=== PATIENT | male | born 1955 | race Two or more races ===

== ENCOUNTER 2017-02-25 05:59 | Day surgery (SDC) | payer BC ==
--- NOTE | 2017-02-24 20:20 | PREOPHP ---
DATE OF ADMISSION: 02/25/2017 HISTORY OF PRESENT ILLNESS: This 61-year-old gentleman who is going to be admitted for diagnostic a rthroscopy of right shoulder, examination under general anesthesia, SLAP repair and Bankart repair a nd rotator cuff repair. This gentleman has been experiencing right shoulder pain for quite a while. Conservative treatment resulted in ____. The patient has requested surgical intervention. PAST MEDICAL HISTORY: Diabetes and hypertension. SOCIAL HISTORY: Nonsmoker, nondrinker. SURGICAL HISTORY: Negative. FAMILY HISTORY: Negative. ALLERGIES: NO HISTORY OF ALLERGY TO MEDICATION. MEDICATIONS: 1. Metformin. 2. Lipid medication. 3. Hypertension medication. 4. Medication for depression. 5. The patient also received Sulindac. 6. ____ [place] 5/325 for postoperative pain. 7. Bactrim-DS 1 b.i.d. for postoperative antibiotic. PHYSICAL EXAMINATION: SKIN: Within normal limits. EARS, NOSE, THROAT: PERRLA. HEAD AND NECK: Normocephalic. Trachea midline. Bilateral symmetrical carotid pulses. No mass, no bruit, no lymphadenopathy. CARDIOVASCULAR: Normal sinus rhythm. S1, S2 normal. No murmur. No JVD. No peripheral edema. LUNGS: Clear. ABDOMEN: Slightly protuberant. No organomegaly. No mass. Bowel sounds present. GENITOURINARY: Rectal not done, not pertinent to this admission. MUSCULOSKELETAL: Cervical spine appears 97% range of motion with mild trapezial tenderness on the r ight. The right shoulder shows minimal muscle atrophy. Range of motion is 0 to 150 degrees of flex ion and 0 to 30 degrees of abduction. ____. Left shoulder was normal. Elbow, forearm, wrist and hand are symmetrical and normal. Neurological examination is intact. Spi ne clear. Both lower extremities symmetrical and normal including neurovascular examination. MRI of the right shoulder indicates full-thickness retracted tear of supraspinatus anteriorly, measu ring 1.8 cm in AP dimension and 1.8 mm gap retracted medially and there is mild partial tear of the subscapularis, labral degeneration superiorly, joint effusion. Moderate AC arthropathy. DIAGNOSES: 1. Right shoulder chronic pain, right shoulder rotator cuff tear, right shoulder SLAP, Bankart lesi on, right shoulder arthrofibrosis. Treatment plan, alternatives, risks and benefits discussed. The patient understands possible compli cations from surgery such as infection, bleeding, nerve damage, vascular damage, deep venous thrombo sis, pulmonary embolism, hypersensitivity, and even . The patient understands ideal result may not be obtained depending on actual finding and known or un known factors. Formal H and P is supposed to be done by the PCP. Dictated By: ELYSSA MARSHALL/TE Conf#: [id number] DID#: [id number]
[~2017-02-25] VITALS: Ht 170.2 cm; Wt 89.1 kg
[~2017-02-25 05:59] MED LIST: CEFAZOLIN 2 GM/50 ML (PMX) 50 ML IVPB ONE; FLUO10CA17; METF500T4; METO10TA96; [UNRECOGNIZED DRUG - OTHER]
[2017-02-25 06:05] VITALS: BP 153/95; PULSE 81; RESP 18; Ht 170.2 cm; Wt 89.1 kg
[2017-02-25] MEDS ORDERED: EPINEPHrine 1 MG/ML 30 ML INJ ONE (07:03)
[2017-02-25] MEDS ORDERED: morphine SULFATE/PF (10 MG/10 ML) INJ ONE (07:03)
[2017-02-25] MEDS ORDERED: PANT40SU PO (07:06)
[2017-02-25] MEDS ORDERED: SITA100T8 PO (07:06)
[2017-02-25] MEDS ORDERED: GLIM4TAB PO (07:06)
[2017-02-25] MEDS ORDERED: ENAL20TA PO (07:06)
[2017-02-25] MEDS ORDERED: METF-731 PO (07:06)
[2017-02-25] MEDS ORDERED: ASPI-664 PO (07:06)
[2017-02-25] MEDS ORDERED: PRAV40TA76 PO (07:06)
[2017-02-25] MEDS ORDERED: FLUO40CA10 PO (07:07)
[2017-02-25] MEDS ORDERED: FENTAnyl 50 MCG/ML VIAL ONE (07:21)
[2017-02-25] MEDS ORDERED: ROPIVACAINE 0.5 % 30 ML VIAL ONE (07:39)
[2017-02-25] MEDS ORDERED: MIDAZOLAM 1 MG/ML 2 ML INJ ONE (07:41)
[2017-02-25] MEDS ORDERED: GLYCOPYRROLATE 0.4 MG INJ ONE (08:44)
[2017-02-25] MEDS ORDERED: NEOSTIGMINE 3 MG/3 ML SYRINGE ONE (08:44)
[2017-02-25] MEDS ORDERED: SUCCINYLCHOLINE CHLORIDE 100 MG/5 ML SYG IV ONE (08:44)
[2017-02-25] MEDS ORDERED: ROCURONIUM 50 MG INJ ONE (08:44)
[2017-02-25] MEDS ORDERED: PROPOFOL 40 ML ONE (08:44)
[2017-02-25] MEDS ORDERED: CEFAZOLIN 1 GM INJ ONE (08:44)
[2017-02-25] MEDS ORDERED: LIDOCAINE 2% (SDV) 5 ML INJ ONE (08:44)
[2017-02-25] MEDS ORDERED: METOCLOPRAMIDE 10 MG INJ IV PRN (09:00)
[2017-02-25] MEDS ORDERED: HYDROmorphONE (0.2 MG/ML) 10ML SYG IV PRN ×3 (09:00)
[2017-02-25] MEDS ORDERED: ONDANSETRON 4 MG INJ IV PRN ×2 (09:00→11:30)
[2017-02-25] MEDS ORDERED: FENTAnyl 50 MCG/ML VIAL IV PRN ×2 (09:00)
[2017-02-25] MEDS ORDERED: MEPERIDINE 25 MG INJ IV PRN (09:00)
[2017-02-25] MEDS ORDERED: DIPHENHYDRAMINE 50 MG INJ IV PRN (09:00)
[2017-02-25 11:10] VITALS: BP 151/68; PULSE 65; RESP 20
[2017-02-25] MEDS ORDERED: HYDROCODONE/APAP (5/325) TAB PO PRN (11:30)
[2017-02-25] MEDS ORDERED: OXYCODONE/ACETAMINOPHEN (5/325) TAB PO PRN (11:30)
[2017-02-25] MEDS ORDERED: ACETAMINOPHEN 500 MG TAB PO PRN (11:30)
[2017-02-25 12:20] VITALS: BP 144/73; PULSE 89; RESP 14
--- NOTE | 2017-02-25 21:18 | OPR ---
DATE OF OPERATION: 02/25/2017 PREOPERATIVE DIAGNOSES: Torn rotator cuff tear, Bankart lesion, possible SLAP lesion, synovitis, ri ght shoulder. POSTOPERATIVE DIAGNOSES: Chronic synovitis, rotator cuff tear involving supraspinatus and part of t he infraspinatus tendon, right shoulder instability. PROCEDURE PERFORMED: Diagnostic arthroscopy, examination under general anesthesia, rotator cuff rep air, Bankart repair, total synovectomy, right shoulder. ANESTHESIA: General. BLEEDING: Minimal. COMPLICATIONS: None. OUTSOLE CUTTER MACHINE: Tre OPERATIVE PROCEDURE: The patient was transferred to the operating room and placed on the table in s upine position. A shoulder block was given by the anesthesiologist and general anesthesia was induc ed. The patient was put in the left decubitus position. Bony areas were padded. Beanbag was defla primitivo. Then, right shoulder was shaved, prepped and draped in the routine fashion. Two grams of Ance f was already given IV. After regular prep and draping, during this procedure, we used the Arthrex shoulder pardo with total of 10 pounds on subacromial space, total of 10 pounds on glenohumeral wu nt. Landmarks were marked and through the posterior portal, glenohumeral joint was entered. Anterolater al portal was established with an 8.5 cannula. Examination under general anesthesia indicated almos t 50% anterior instability of the humeral head on the glenoid. There were fibrillations superiorly and anteriorly on the anterior labrum and margin of the humeral head. There was grade II chondromal acia in the center of the humeral head and also at the anterior margin. The rest of it was gr bashir I to II. The biceps was intact. There was absence of a SLAP lesion. There was redundancy in t he capsule. Subscapularis was intact. Rotator cuff at the supraspinatus and part of the infraspina tus was torn from its marginal attachment to the footprint. There was massive synovitis in the shou lder, it was taken care of by coagulation, Arthrocare Bovie. was capsule, we pulled the capsule out and we incorporated it into the posterior part of the anterior labrum at 2 o'clock and we used a PushLock and stable fixation was obtained. There was absence of instability now. Excess sutures were cut and this provided bleeding between the layers. Trimming of the anterior labrum, superior labrum of fibrillations was done with coagulation by Arthr ocare Bovie. Through the posterior portal, we entered the subacromial space. Lateral portal was established and cannula was inserted. There was massive synovitis which was taken care of by Arthrocare Bovie. The re was severe impingement of type 3 and also anterior was type 3. Therefore, formal acromioplasty w as done. Coagulation with Arthrocare was done for massive synovitis. The bed was prepared to reatt ach the rotator cuff. We used a Scorpion, 2 sutures were put in inferiorly and superiorly and we us ed a 5.5 PushLock. This was repaired on a bleeding surface. The area was irrigated with copious amounts of saline irrigation. Portals were closed with skin sta ples. Then, 10 mg of Duramorph mixed with 15 mL of injectable saline, half was injected into the sh oulder joint and subacromial space. A sterile dressing was applied. Shoulder immobilizer was place d on. General anesthesia was stopped. The patient was taken to recovery room in good and stable co ndition. Dictated By: ELYSSA MARSHALL/TE Conf#: [id number] DID#: [id number]
== END 2017-02-25 13:55 | disposition home or self-care (01) ==
LOC: SDS 05:59
PROVIDERS: ATTEND Internal Medicine Endocrinology, Diabetes & Metabolism
DX: M75.101 Unspecified rotator cuff tear or rupture of right shoulder, not specified as traumatic (principal); M65.811 Other synovitis and tenosynovitis, right shoulder; M25.311 Other instability, right shoulder; E11.9 Type 2 diabetes mellitus without complications; I10 Essential (primary) hypertension; Z79.84 Long term (current) use of oral hypoglycemic drugs; M19.90 Unspecified osteoarthritis, unspecified site; E78.5 Hyperlipidemia, unspecified; E66.9 Obesity, unspecified; Z68.30 Body mass index [BMI] 30.0-30.9, adult
CPT/HCPCS: 29826; 29827; 82962; C1713; J0171; J0690; J2175; J2250; J2274; J2405; J2710; J2795; J3010; J7999; Z7512; Z7610